=== PATIENT | female | born 1955 | race Caucasian/White ===

== ENCOUNTER 2017-04-23 05:50 | Day surgery (SDC) | payer OTHER ==
[~2017-04-23] VITALS: Ht 165.1 cm; Wt 115.7 kg
[~2017-04-23 05:50] MED LIST: ADVAIR 250-501 EACH INH; ALBUTEROL SULF8.5 GM; CELEBREX200 MG PO; COZAAR25 MG PO; CYMBALTA60 MG PO; FIBER GUMMIES1 EACH PO; FISH OIL 1,0001 EAC6 PO; GENTAMICIN SULFA5 ML OD; GLUCOPHAGE500 MG PO; IBUPROFEN800 MG PO; LIPITOR10 MG PO; LORATADINE10 MG PO; MOBIC15 MG PO; NAPROSYN500 MG PO; NASONEX17 GM NS; NORCO 5-325 TA1 EACH PO; NORTRIPTYLINE H10 MG PO; ONE DAILY FOR1 EACH PO; PRILOSEC20 MG PO; PROAIR HFA8.5 GM INH; SINGULAIR10 MG PO; TRAZODONE HCL150 MG PO; VIACTIV SOFT C1 EACH PO; VITAMIN B-50 C0.4 MG PO
--- NOTE | 2017-04-23 08:51 | NUR ---
04/23/17 0851 Phoebe Munoz 9716-PATIENT ARRIVED TO PACU ON 6L MASK O2 SAT 100% AWAKE DENIES PAIN OR NAUSEA. ABLE TO WIGGLE LEFT FINGERS DRESSING CDI NUMBNESS TO LEFT HAND ELEVATED ON PILLOW AND ICE APPLIED.
[2017-04-23] MEDS ORDERED: ULTRAM50 MG PO (09:17)
--- NOTE | 2017-04-24 07:05 | OR ---
[facility] [address] [place], [place] [address] Signed DATE OF OPERATION: 04/23/2017 SURGEON: Sergo Pak MD PREOPERATIVE DIAGNOSIS: Trigger finger, left ring. POSTOPERATIVE DIAGNOSIS: Trigger finger, left ring. PROCEDURE: A1 rachelle release, left ring finger. ANESTHESIA: Blanchard block. SPECIMENS AND COMPLICATIONS: There were no specimens or complications. TOURNIQUET TIME: About 24 minutes. WHAT WAS DONE: The patient was taken to the operating room. After anesthesia was induced, the patient's left upper extremity was positioned, prepped, and draped in the routine sterile fashion. A transverse incision was made near the MCP flexion crease. Skin was divided sharply. Subcutaneous tissue was bluntly spread. The A1 rachelle was identified. We released it with the tip of a 15 blade at which point, we had free excursion of the tendon with no more triggering. The wound was gently irrigated, closed in a standard fashion. Sterile dressing applied. The patient was awakened to the recovery room where she arrived in stable condition. Counts were correct and antibiotic protocols were followed. Sergo Pak MD WFB/MODL Electronically Signed By: SERGO PAK MD 04/24/17 0705 PATIENT NAME: JENNIFERPRO OPERATIVE REPORT DATE OF : 55 PHYSICIAN: SERGO PAK MD REPORT #: [id number] REPORT IS CONFIDENTIAL AND NOT TO BE RELEASED WITHOUT AUTHORIZATION [address] [place], [place] [address] Signed /[id number] Electronically Signed By: SERGO PAK MD 04/24/17 0705 PATIENT NAME: PRO RODRIGUEZ OPERATIVE REPORT DATE OF : 55 PHYSICIAN: SERGO PAK MD REPORT #: [id number] REPORT IS CONFIDENTIAL AND NOT TO BE RELEASED WITHOUT AUTHORIZATION
== END 2017-04-23 09:42 | disposition home or self-care (01) ==
LOC: OPS 05:50 → DS 06:45 → OPS 08:30
PROVIDERS: Orthopaedic Surgery
PROC: 0LN80ZZ Release Left Hand Tendon, Open Approach (ICD-10-PCS; principal; 2017-04-23 08:30)
DX: M65.342 Trigger finger, left ring finger (principal); J45.909 Unspecified asthma, uncomplicated; E11.9 Type 2 diabetes mellitus without complications; I10 Essential (primary) hypertension; Z88.0 Allergy status to penicillin; Z79.899 Other long term (current) drug therapy; Z98.890 Other specified postprocedural states
CPT/HCPCS: 01810; J2250; J2704; J3010; J7120

== ENCOUNTER 2019-01-11 12:46 | Day surgery (SDC) | payer BC ==
[~2019-01-11] VITALS: Ht 160 cm; Wt 111.1 kg
[~2019-01-11 12:46] MED LIST changes: +ULTRAM50 MG PO
--- NOTE | 2019-01-11 14:40 | NUR ---
01/11/19 1440 RAUL MIRANDA PATIENT ARRIVED FROM ENDO ROOM AND WAS ON 4L NC AT 1430. PATIENT WAS AWAKE AND CONVERSING AND ABLE TO FOLLOW INSTURCTIONS. PATIENT WAS ENCOURAGED TO PASS GAS. PATIENT HAS NO COMPLAINTS OF NAUSEA. PATIENT DOES STATE HE STOMACH FEELS TIGHT. PATIENT WAS TAKEN OFF OXYGEN AT 1435. PATIENT O2 SAT HAS BEEN 95-96% WHILE ON ROOM AIR. NO OTHER COMPLAINTS AT THIS TIME.
--- NOTE | 2019-01-12 10:24 | OR ---
[facility] [address] [place], [place] [address] Signed DATE OF OPERATION: 01/11/2019 SURGEON: Ori Ramos MD PREOPERATIVE DIAGNOSES: 1. History of diverticulosis, episodic diarrhea, diabetes mellitus. 2. Family history of Crohn disease (mother). POSTOPERATIVE DIAGNOSES: 1. Extensive diverticulosis of sigmoid and left colon. 2. Normal-appearing ileum. 3. Possible small bowel polyp in left colon (excised). PROCEDURES PERFORMED: 1. Total colonoscopy to cecum with biopsies of cecum, rectum, and ileum. 2. Cold morcellation polypectomy x1, left colon. ANESTHESIA: Intravenous sedation, fentanyl 100 mcg, Versed 5 mg. INDICATION: This obese 63-year-old white woman is a patient of Dr. German and has been referred for surveillance colonoscopy essentially. She underwent colonoscopy in 2008, at that time was noted to have diverticulosis. She does have diarrhea from time to time and its relationship to her cholecystectomy is uncertain. She does have diabetes and takes Glucophage, Singulair tablets, Cymbalta, Lipitor, and trazodone. She is admitted at this time to undergo colonoscopy for surveillance as well as for issues of diarrhea. Notably, her mother had Crohn disease. She understands the risks of bleeding, infection, and perforation related to colonoscopy and wished to proceed. FINDINGS: The prep was excellent. Complete colonoscopy was undertaken to the cecum. Short intubation of the ileum allowed for visualization and biopsies. There were numerous diverticula. There was one area likely a small polyp at the splenic flexure, which was excised. Mucosa of the colon otherwise was normal as was the ileum. DESCRIPTION OF PROCEDURE: The patient was brought to endoscopy suite and placed in lateral decubitus position. Given intravenous sedation to the point of slurred speech and nystagmus under full cardiopulmonary monitoring. Digital rectal examination was normal. Electronically Signed By: ORI RAMOS MD 01/12/19 [facility] PATIENT NAME: PRO RODRIGUEZ OPERATIVE REPORT DATE OF : 55 REPORT #: [id number] PHYSICIAN: ORI RAMOS MD PCP: KERRY MAIN MD REPORT IS CONFIDENTIAL AND NOT TO BE RELEASED WITHOUT AUTHORIZATION [facility] [address] [place], [place] [address] Signed An Olympus video colonoscope was passed in the rectum and manipulated into the sigmoid, where numerous diverticula were noted. The scope was advanced beyond this ultimately to the cecum. The ileocecal valve and appendiceal orifice were normal. Several passes of the scope into the ileum allowed for good visualization, but it could not persistently stayed there. On that basis, a biopsy was made by insinuating the forceps into the ileum. Several biopsies were taken. The scope was withdrawn and biopsies taken of the cecum to rule out occult colitis. Further withdrawal of scope showed an area of likely a small polyp of the proximal descending colon (splenic flexure), which was excised with cold morcellation technique. It is not certain that this represented a polyp, though narrow band imaging suggested it strongly. Further withdrawal showed numerous diverticula of the left colon and sigmoid. Retroflexed view showed internal hemorrhoidal changes, but no other findings. Biopsies were taken of the rectum. CONCLUDING DIAGNOSES: 1. No clear evidence of colitis or ileitis. 2. Diverticulosis. 3. Small polyp of left colon. PLAN: If she has recurrence of her diarrhea, consideration might be made for Questran. We will review her pathology reports. She will return to the ongoing care of Dr. German generally speaking, and if there are persistent symptoms, I will see her again myself. Ori Ramos MD /APRILL /[id number] cc: Hilary German MD Copies: HILARY GERMAN MD ~ Electronically Signed By: ORI RAMOS MD 01/12/19 1024 PATIENT NAME: PRO RODRIGUEZ OPERATIVE REPORT DATE OF : 55 REPORT #: [id number] PHYSICIAN: ORI RAMOS MD PCP: KERRY MAIN MD REPORT IS CONFIDENTIAL AND NOT TO BE RELEASED WITHOUT AUTHORIZATION
--- NOTE | 2019-01-12 16:56 | PATH ---
[facility] [address] [place], [place] [address] Signed SPECIMEN(S): A CECUM SPECIMEN(S): B TERMINAL ILEUM SPECIMEN(S): C PROXIMAL DESCENDING POLYP SPECIMEN SOURCE: A. CECUM B. TERMINAL ILEUM C. PROXIMAL DESCENDING POLYP CLINICAL HISTORY: Colonoscopy, chronic diarrhea, history of colon polyps, family history of Crohn's disease, dyslipidemia, diverticulosis. MICROSCOPIC DESCRIPTION: A. Sections reveal a biopsy of colonic mucosa. The epithelial surface is intact but has slightly decreased mucus secreting ability. The basement membrane is not thickened. The glands are simple and tubular and reach all of the way to the muscularis mucosae. The lamina propria is minimally edematous but otherwise fairly unremarkable. It contains small numbers of plasma cells, lymphocytes and infrequent eosinophils. No acute inflammatory cells, excess intraepithelial lymphocytes, crypt abscesses, areas of fibrosis, granulomas or pseudomembranes are seen. There is no evidence of malignancy or atypia. B, C. Histologic sections of all submitted blocks are examined by light microscopy. These findings, together with the gross examination, support the pathologic diagnosis. LJA:carolina FINAL PATHOLOGIC DIAGNOSIS: A. Mucosa, cecum biopsy: - No microscopic pathologic diagnosis. B. Mucosa, terminal ileum, biopsy: - Small intestinal mucosa with normal villiform architecture, no microscopic pathologic diagnosis. C. Mucosa, proximal descending colon, biopsy: - No microscopic pathologic diagnosis (Polyp, clinicalsee comment). COMMENT: CMultiple levels over three slides are examined. No adenomatous or hyperplastic change is seen. LJA:cml:C2NR PATIENT NAME: PRO RODRIGUEZ PATHOLOGY DATE OF : 55 REPORT #: [id number] PHYSICIAN: NESTOR BUSBY PCP: KERRY MAIN MD REPORT IS CONFIDENTIAL AND NOT TO BE RELEASED WITHOUT AUTHORIZATION [facility] [address] [place], [place] [address] Signed GROSS DESCRIPTION: Three specimens are received in three containers, labeled "CO." A. The specimen, labeled "CO, cecum," is received in formalin and consists of two herbert-white soft tissue fragments each measuring 0.2 cm in greatest dimension. The specimen is entirely submitted in cassette (A1). B. The specimen, labeled "CO, terminal ileum," is received in formalin and consists of two herbert-white soft tissue fragments each measuring 0.2 cm in greatest dimension. The specimen is entirely submitted in cassette (B1). C. The specimen, labeled "CO, proximal descending polyp," is received in formalin and consists of a 0.2 cm greatest dimension irregular herbert-white soft tissue fragment. The specimen is entirely submitted in cassette (C1). AR (under the direct supervision of a pathologist) The Gross Description was prepared using a voice recognition system. The report was reviewed for accuracy; however, sound-alike word errors, addition and/or deletions may occur. If there is any question about this report, please contact Client Services. PERFORMING LABORATORY: The technical component was performed by [facility] [address] (Movie Theater Manager: Lori Garcia MD; CLIA# [id number]). [facility] [address] [address] (Movie Theater Manager: Mateo Arias MD; CLIA# [id number]). Diagnostician: Mateo Arias MD Pathologist Electronically Signed 01/12/2019 Copies: ~ PATIENT NAME: PRO RODRIGUEZ PATHOLOGY DATE OF : 55 REPORT #: [id number] PHYSICIAN: NESTOR PATHOLOGY PCP: KERRY MAIN MD REPORT IS CONFIDENTIAL AND NOT TO BE RELEASED WITHOUT AUTHORIZATION
== END 2019-01-11 15:10 | disposition home or self-care (01) ==
LOC: DS 12:46 → OPS 12:46 → DS 14:00 → OPS 15:10
PROVIDERS: Surgery
PROC: 0DBB8ZX Excision of Ileum, Via Natural or Artificial Opening Endoscopic, Diagnostic (ICD-10-PCS; 2019-01-11)
PROC: 0DBP8ZX Excision of Rectum, Via Natural or Artificial Opening Endoscopic, Diagnostic (ICD-10-PCS; 2019-01-11)
PROC: 0DBG8ZZ Excision of Left Large Intestine, Via Natural or Artificial Opening Endoscopic (ICD-10-PCS; 2019-01-11)
PROC: 0DBH8ZX Excision of Cecum, Via Natural or Artificial Opening Endoscopic, Diagnostic (ICD-10-PCS; principal; 2019-01-11 14:00)
DX: R19.7 Diarrhea, unspecified (principal); K57.30 Diverticulosis of large intestine without perforation or abscess without bleeding; E11.9 Type 2 diabetes mellitus without complications; E66.01 Morbid (severe) obesity due to excess calories; J45.909 Unspecified asthma, uncomplicated; J68.3 Other acute and subacute respiratory conditions due to chemicals, gases, fumes and vapors; K21.9 Gastro-esophageal reflux disease without esophagitis; G47.30 Sleep apnea, unspecified; Z68.41 Body mass index [BMI] 40.0-44.9, adult; Z83.79 Family history of other diseases of the digestive system; Z88.0 Allergy status to penicillin
CPT/HCPCS: 99153; G0500; J2250; J3010; J7120

== ENCOUNTER 2020-09-10 07:10 | Day surgery (SDC) | payer MEDICARE, OTHER ==
[~2020-09-10] VITALS: Ht 160 cm; Wt 115.0 kg
[~2020-09-10 07:10] MED LIST changes: +LYRICA75 MG; +MEDROL4 M1 PO
[2020-09-10] MEDS ORDERED: HYDROCODON-ACE1 EA11 PO (10:56)
--- NOTE | 2020-09-10 11:03 | NUR ---
PT ALERT, ORIENTED AND SUPPORTED BY HER QUANG. PT LIVES IN RV WITH , QUESTIONS ASKED ANSWERED. PT REQUESTED PRAYER, WILL RETURN TO [facility] LATER TODAY. WILL FOLLOW NEEDED
--- NOTE | 2020-09-10 11:08 | NUR ---
09/10/20 1108 Sheets,[place] 1100 PT ARRIVED TO PACU ON 6L VIA MASK, RESP EVEN AND UNLABORED. PT ARM ELEVATED ON PILLOW PT DENIES PAIN. [facility] WNL. 1107 O2 REMOVED AND PT ENCOURAGED TO DEEP BREATHE. VSS.
--- NOTE | 2020-09-10 12:13 | NUR ---
SOUP ORDERED FOR LUNCH. PT CONTINUES TO DENY NAUSEA. REPORTS INCREASING PAIN.
--- NOTE | 2020-09-12 07:11 | OR ---
[facility] [address] [place], [place] [address] Signed DATE OF OPERATION: 09/10/2020 SURGEON: Tom Arias MD PREOPERATIVE DIAGNOSIS: Left cubital tunnel syndrome. POSTOPERATIVE DIAGNOSIS: Left cubital tunnel syndrome. PROCEDURE PERFORMED: Left ulnar nerve transposition. BANKING CONSULTANT: Shannon Arriaga PA-C. Shannon was present and critical for all portions of procedure. ANESTHESIA: General. TOURNIQUET TIME: 45 minutes. BRIEF HISTORY: Marley is a 65-year-old female with progressive worsening of numbness and tingling in her small and ring fingers. Nerve conduction studies were consistent with cubital tunnel. Once nonoperative treatment failed to control her symptoms, she elected to proceed. Risks and benefits of operative treatment were discussed with her and she elected to proceed. DESCRIPTION OF PROCEDURE: Once consent was obtained, she was taken to the operating room. After adequate anesthesia, she was placed on operating room table. All downside pressure points were well padded. The arm was prepped and draped in a standard sterile fashion and a sterile tourniquet was applied to the arm and the arm was exsanguinated using Esmarch bandage. Tourniquet was inflated to 225 mmHg. Her body habitus was quite big, so it is a little difficult to find the medial epicondyle, but we did center a 3-inch incision over this, carried through the skin and subcutaneous tissue. The fat was dissected and taken down to the medial epicondyle. The fascia overlying the cubital tunnel was then opened gently and under loupe magnification, the nerve was identified and dissected free from Electronically Signed By: TOM ARIAS MD 09/12/20 0711 PATIENT NAME: MARLEY RODRIGUEZ OPERATIVE REPORT DATE OF : 55 REPORT #: [id number] PHYSICIAN: TOM ARIAS MD PCP: KERRY MAIN MD REPORT IS CONFIDENTIAL AND NOT TO BE RELEASED WITHOUT AUTHORIZATION [facility] [address] [place], [place] [address] Signed surrounding soft tissue. The vascular plexus posteriorly were avoided. The nerve was then gently teased out of the cubital tunnel. It was unroofed distally and proximally. The intermuscular ridge was debrided and released to allow no pressure with transposition of the nerve anteriorly. The nerve distally was dissected free of surrounding soft tissue and taken down to the anconeus branch and was transposed anteriorly with no tension. The bleeders were cauterized as we went with bipolar cautery. A fascial sling was then fashioned anteriorly and sutured over the nerve with care taken to protect the nerve. The sling was sutured with 2-0 Vicryl and at the end of the procedure, we were able to freely move the nerve back and forth in the sling. The wound was then copiously irrigated with antibiotic solution. The fatty tissue was closed using 2-0 Vicryl, subcutaneous tissue with 2-0 Monocryl and the skin with 3-0 Monocryl. Steri-Strips were applied. The wound was dressed with Allevyn dressing, sterile cast padding and a posterior splint. She tolerated the procedure well. All sponge, needle, and instrument counts were correct. Tom Arias MD BA/MODL /[id number] Copies: ~ Electronically Signed By: TOM ARIAS MD 09/12/20 0711 PATIENT NAME: MARLEY RODRIGUEZ OPERATIVE REPORT DATE OF : 55 REPORT #: [id number] PHYSICIAN: TOM ARIAS MD PCP: KERRY MAIN MD REPORT IS CONFIDENTIAL AND NOT TO BE RELEASED WITHOUT AUTHORIZATION
== END 2020-09-10 13:05 | disposition home or self-care (01) ==
LOC: DS 07:10
PROVIDERS: ATTEND Specialist
PROC: 01S40ZZ Reposition Ulnar Nerve, Open Approach (ICD-10-PCS; principal; 2020-09-10 09:30)
DX: G56.22 Lesion of ulnar nerve, left upper limb (principal); G89.18 Other acute postprocedural pain; G47.30 Sleep apnea, unspecified; M65.322 Trigger finger, left index finger; J45.909 Unspecified asthma, uncomplicated; I10 Essential (primary) hypertension; E78.00 Pure hypercholesterolemia, unspecified; E11.9 Type 2 diabetes mellitus without complications; K21.9 Gastro-esophageal reflux disease without esophagitis; Z79.84 Long term (current) use of oral hypoglycemic drugs; Z88.0 Allergy status to penicillin; Z87.891 Personal history of nicotine dependence; Z86.16 Personal history of COVID-19
CPT/HCPCS: 01810; 64415; 76942; J0690; J1100; J2001; J2250; J2704; J2795; J7121

== ENCOUNTER 2021-01-02 05:45 | Day surgery (SDC) | payer MEDICARE, OTHER ==
--- NOTE | ~2021-01-02 | OR ---
[facility] [address] [facility] [place], [place] [address] Draft DATE OF OPERATION: 01/02/2021 SURGEON: Josee German MD PREOPERATIVE DIAGNOSIS: Abnormal Pap smear, inadequate colposcopy. POSTOPERATIVE DIAGNOSIS: Abnormal Pap smear, inadequate colposcopy, pending pathology. PROCEDURE: Loop electrosurgical excision procedure. ANESTHESIA: MAC. ESTIMATED BLOOD LOSS: Minimal. DRAINS: None. INDICATIONS AND FINDINGS: The patient is a 65-year-old female who has had recurrent abnormal Pap smears. Last Pap revealed low-grade lesion. Colposcopy was inadequate. She has had a LEEP as well as a cone in the distant past. At the time of surgery, exam under anesthesia was normal. There were no abnormal staining areas on the exocervix. The cervix was stenotic. DESCRIPTION OF PROCEDURE: The patient was prepped and draped in the dorsal lithotomy position. An insulated speculum was placed and the cervix and vagina stained with Lugol's. Following this, the narrow loop was used to remove the exocervix as the cervix itself was quite small. This was accomplished, and the neural loop was used again to go deeper into the endocervical canal with a second specimen obtained. Following this, the small dilator was used to dilate the endocervical canal. This was followed by ball cautery to the base of the LEEP. Monsel's solution was used at the end for further hemostasis. The speculum and instruments removed. She tolerated the procedure well and was taken to the recovery room in good condition. PATIENT NAME: PRO ZEPEDA OPERATIVE REPORT DATE OF : 55 REPORT #: [id number] PHYSICIAN: JOSEE GERMAN MD PCP: LASHANDA SALAZAR MD REPORT IS CONFIDENTIAL AND NOT TO BE RELEASED WITHOUT AUTHORIZATION [address] [place], [place] [address] Draft MD BRADY Saravia/NOBLE /[id number] Copies: ~ PATIENT NAME: PRO ZEPEDA OPERATIVE REPORT DATE OF : 55 REPORT #: [id number] PHYSICIAN: JOSEE GERMAN MD PCP: LASHANDA SALAZAR MD REPORT IS CONFIDENTIAL AND NOT TO BE RELEASED WITHOUT AUTHORIZATION
[~2021-01-02 05:45] MED LIST changes: +HYDROCODON-ACE1 EA11 PO
[2021-01-02] MEDS ORDERED: CALCIUM500 MG PO (06:10)
[2021-01-02] MEDS ORDERED: VITAMIN D310 MC1 PO (06:10)
--- NOTE | 2021-01-02 07:42 | NUR ---
01/02/21 0742 Phoebe Munoz 8548-PATIENT ARRIVED TO PACU ON RA RR EVEN. PATIENT DROWSY EYES CLOSED AROUSES TO VERBAL STIMULI DENIES PAIN OR NAUSEA. ROBEL PAD IN PLACE NO DRAINAGE. PATIENT HAS CPAP WITH HER HAS SLEEP APNEA. PER [facility]ING MANAGER DO NOT NEED TO RECHECK BLOOD SUGAR. SR. IVF INFUSING.
--- NOTE | 2021-01-03 17:50 | PATH ---
[facility] [address] [place], [place] [address] Signed SPECIMEN(S): A EXOCERVIX SPECIMEN(S): B ENDOCERVIX SPECIMEN SOURCE: A. EXOCERVIX B. ENDOCERVIX CLINICAL HISTORY: Cone biopsy. Abnormal Pap, inadequate colposcopy. FINAL PATHOLOGIC DIAGNOSIS: A. Exocervix, cone biopsy: - Squamous mucosa with no histopathologic abnormality. - See Comment. B. Endocervix, cone biopsy: - Cauterized, mostly denuded cervical squamous mucosa and focal endocervical glands. - See Comment. COMMENT: Multiple additional deeper levels of both the exocervix (specimen A) and endocervix (specimen B) were examined. The overwhelming vast majority of the mucosa of the endocervical tissue fragment (specimen B) is denuded. The squamous mucosa and the minimal endocervical glands that are present are negative for dysplasia. Of note, some fragments of mucosa have significant crush artifact, which prevents histologic interpretation. NAL:bg:C2NR MICROSCOPIC EXAMINATION: Histologic sections of all submitted blocks are examined by light microscopy. These findings, together with the gross examination, support the pathologic diagnosis. GROSS DESCRIPTION: Two specimens are received in two containers, labeled "CB." A. The specimen, labeled "CB, exocervix," is received in formalin and consists of pink-herbert soft tissue fragment that measures 0.8 x 0.7 x 0.3 cm. Specimen is inked and bisected. Specimen is entirely submitted in cassette (A1). B. The specimen, labeled "CB, endocervix," is received in formalin and PATIENT NAME: PRO ZEPEDA PATHOLOGY DATE OF : 55 REPORT #: [id number] PHYSICIAN: NESTOR BUSBY PCP: LASHANDA SALAZAR MD REPORT IS CONFIDENTIAL AND NOT TO BE RELEASED WITHOUT AUTHORIZATION [facility] [address] [place] [address] Signed consists of one irregular shaped piece of pink-herbert soft tissue that measures 1.2 x 0.7 x 0.4 cm. The ectocervix is pink-herbert, smooth. Specimen is inked and serially sectioned. Specimen is entirely submitted in cassette (B1). JS (under the direct supervision of a pathologist) The Gross Description was prepared using a voice recognition system. The report was reviewed for accuracy; however, sound-alike word errors, addition and/or deletions may occur. If there is any question about this report, please contact Client Services. PERFORMING LABORATORY: The technical component was performed by [employer] [address] (Natural Resources Instructor: Lori Garcia MD; CLIA# [id number]). [facility] interpretation [facility] by [facility], [address] [address] (CLIA# [id number]). Diagnostician: Gali Miranda MD Pathologist Electronically Signed 01/03/2021 Copies: ~ PATIENT NAME: PRO ZEPEDA PATHOLOGY DATE OF : 55 REPORT #: [id number] PHYSICIAN: NESTOR BUSBY PCP: LASHANDA SALAZAR MD REPORT IS CONFIDENTIAL AND NOT TO BE RELEASED WITHOUT AUTHORIZATION
== END 2021-01-02 08:25 | disposition home or self-care (01) ==
LOC: DS 05:45
PROVIDERS: ATTEND Obstetrics & Gynecology
PROC: 0UBC7ZX Excision of Cervix, Via Natural or Artificial Opening, Diagnostic (ICD-10-PCS; principal; 2021-01-02 07:30)
DX: N88.8 Other specified noninflammatory disorders of cervix uteri (principal); E66.9 Obesity, unspecified; J45.909 Unspecified asthma, uncomplicated; E11.9 Type 2 diabetes mellitus without complications; M19.90 Unspecified osteoarthritis, unspecified site; K21.9 Gastro-esophageal reflux disease without esophagitis; I10 Essential (primary) hypertension; Z88.0 Allergy status to penicillin; Z79.84 Long term (current) use of oral hypoglycemic drugs; Z68.41 Body mass index [BMI] 40.0-44.9, adult
CPT/HCPCS: 00940; 90694; J1100; J1885; J2001; J2250; J2405; J2704; J2765; J7121

== ENCOUNTER 2021-08-21 07:45 | Day surgery (SDC) | payer MEDICARE, OTHER ==
[~2021-08-21] VITALS: Ht 160 cm; Wt 118.6 kg
--- NOTE | ~2021-08-21 | OR ---
[facility] [address] [place], [place] [address] Draft DATE OF OPERATION: 08/21/2021 SURGEON: Hilary German MD SATELLITE SPECIALIST: Adela Walsh D.O. PREOPERATIVE DIAGNOSIS: Recurrent cervical dysplasia. POSTOPERATIVE DIAGNOSIS: Recurrent cervical dysplasia, pending pathology. PROCEDURES: 1. Total laparoscopic hysterectomy. 2. Bilateral salpingectomy. 3. Cystoscopy. ANESTHESIA: General ET. ESTIMATED BLOOD LOSS: 25 mL. DRAINS: Otero catheter. INDICATIONS AND FINDINGS: The patient is a 66-year-old female, who has had recurrent cervical dysplasia. She has undergone two prior leads as well as a cone in the past. Her cervix was very scarred. At the time of the surgery, the cervix was scarred, small stenotic. Her uterus itself was quite small. The tubes and ovaries were normal. DESCRIPTION OF PROCEDURE: The patient was prepped and draped in the dorsal lithotomy position. Initially, the cervix was attempted to be visualized with a weighted speculum, but because of the previous scarring, the cervix was very difficult to identify. Weighted speculum was removed. The open-sided speculum was placed. Anterior lip of the cervix was then found and grasped with a single-tooth tenaculum. The OS, however, could not be breached. Lacrimal probes were tried as well as the OS Finders and the cervix could not be PATIENT NAME: PRO ZEPEDA OPERATIVE REPORT DATE OF : 55 REPORT #: [id number] PHYSICIAN: HILARY GERMAN MD PCP: LATASHA KENYON MD REPORT IS CONFIDENTIAL AND NOT TO BE RELEASED WITHOUT AUTHORIZATION [facility] [address] [place], [place] [address] Draft breached. Because of this, the speculum was removed and the tenaculum alone was left in place. Attention was directed to the above. The infraumbilical area was injected with 0.5% Marcaine plain. An incision was made with a knife. Each layer was then serially elevated and incised until the fascia was opened and identified, the stay sutures of 0-Vicryl were placed. The peritoneum was opened bluntly. The Elaine cannula was then placed and placed the scope, confirmed proper positioning. CO2 was then introduced into the abdomen. The secondary ports were placed laterally and slightly below the level of the umbilicus. Each of these areas was transilluminated, injected with the Marcaine, incision made with a knife and the trocars placed under direct vision. The left-sided port was a 5 mm port, the right was the Veress needle with the expanding port. Following this, the uterus was visualized and the decision made to proceed with our planned procedure. The patient's right utero-ovarian ligament and round ligament were serially coagulated and divided, this was taken down a little bit more, but the anterior leaf of the peritoneum was not incised at this point. The tube was grasped and was serially coagulated and divided from the fimbriated end and the specimen retrieved through the 8 mm port. The same procedure was carried out on the patient's left side. Again, the utero-ovarian and round ligament areas were coagulated and divided. The tube was serially divided along the mesosalpinx and also excised. Following this, attention was directed anteriorly and the bladder flap was created using the LigaSure [place] device. The peritoneum was taken down posteriorly as well. The uterine vessels were taken at the level of the internal os on the patient's left side, these were serially coagulated and divided. This was done on the right side as well. Attention was redirected anterior and the bladder flap was completed and the bladder pushed down and the tenaculum on the anterior lip of the cervix could then be palpated. The peritoneum was taken down posteriorly to the upper uterosacral ligaments. Following this, it was felt that the specimen could be removed. The Sonicision device was used to begin anteriorly over the area of the tenaculum and this was used to score through a lot of the vaginal mucosa, though the vagina was not entered at this point. Attention was redirected posteriorly and the vagina was able to be entered and the specimen from the cuff. An attempt was made to remove the specimen vaginally, but it was very difficult to grasp given the size of the vagina as well as the patient's size and this was abandoned. The vagina was packed with a wet lap in a glove allowing the pneumoperitoneum to reaccumulate. The uterus was then retrieved via the EndoCatch through the abdominal incision and brought up to the umbilicus and removed intact through the umbilical site. Following this, the pelvis was re-evaluated, there appeared to be a small area of cervix remaining on the anterior portion and this was excised using the LigaSure device. The remaining cuff appeared free of any remaining cervix. The Endo Stitch was then used to close the vaginal cuff, incorporating the right uterosacral ligament and the vaginal mucosa both posteriorly and anteriorly and this was run to the patient's left uterosacral ligament and back to the center. Following this, the abdomen was copiously irrigated and inspected. There was a bleeding point near the patient's left sidewall, this was controlled with the LigaSure device. There was a PATIENT NAME: DUANEPRO OPERATIVE REPORT DATE OF : 55 REPORT #: [id number] PHYSICIAN: HILARY GERMAN MD PCP: LATASHA KENYON MD REPORT IS CONFIDENTIAL AND NOT TO BE RELEASED WITHOUT AUTHORIZATION [facility] [address] [place], [place] [address] Draft significant amount of raw area and Tisseel was used to spray over this area to ensure hemostasis. All sponge and needle counts were correct at this point. The inserts removed from the abdomen after allowing as much CO2 as possible to escape. The fascial incision was reidentified and closed with a running suture of 0 Vicryl. The stay sutures were tied across as well. The skin incisions were closed with subcuticular sutures of 3-0 Vicryl Rapide. The vaginal pack was removed and the Otero catheter was removed. Cystoscopy was done. She had received IV fluorescein. There was no evidence of any damage to the bladder. Both ureteral orifices were seen to squirt clear urine. No fluorescein was seen at this time, however. Following this, the procedure was complete. The patient was taken to the recovery room in good condition. Hilary German MD PJW/MODL /[id number] cc: Adela Walsh DO Copies: ADELA WALSH DO ~ PATIENT NAME: PRO ZEPEDA OPERATIVE REPORT DATE OF : 55 REPORT #: [id number] PHYSICIAN: HILARY GERMAN MD PCP: LATASHA KENYON MD REPORT IS CONFIDENTIAL AND NOT TO BE RELEASED WITHOUT AUTHORIZATION
[~2021-08-21 07:45] MED LIST changes: +CALCIUM500 MG PO; +IRON18 MG PO; +MULTI VITAMIN1 EACH PO; +VITAMIN D310 MC1 PO
--- NOTE | 2021-08-21 14:06 | NUR ---
08/21/21 1406 Phoebe Munoz 1352-PATIENT ARRIVED TO PACU ON 10L MASK NONAROUSABLE ORAL AIRWAY IN PLACE RR EVEN O2 SAT 90%. IVF INFUSING. SR. PATEL CATHETER DRAINING YELLOW URINE. 3 LAP SITES TO ABDOMEN CDI. ROBEL PAD IN PLACE 1353-PATIENT AROUSING TO VERBAL STIMULI EYES OPENING NOT FOLLOWING COMMANDS O2 SAT INCREASES TO 93% PATIENT DOES USES CPAP FOR SLEEP APNEA. 1404-PATIENT AROUSING TO VERBAL STIMULI OPENING MOUTH ORAL AIRWAY REMOVED. PLACED ON 6L MASK RR EVEN 93% PATIENT ENCOURAGED TO TAKE DEEP BREATHES. IV TYLENOL INFUSING
--- NOTE | 2021-08-21 15:01 | NUR ---
PATIENT BACK IN DAY SURGERY ROOM FROM PACU. DENIES PAIN. DENIES NAUSEA. DROWSY. VS CHECKED. 3 LAP SITES ON ABDOMEN WITH BANDAIDS WITH SCANT AMOUNT OF RED DRAINAGE. PERIPAD IN PLACE WITH SCANT AMOUNT OF RED DRAINAGE. IV SITE WNL. SCDs ON. PATIENT TAKING SIPS OF ICE WATER. CALLED RT TO PLACE PATIENT'S OWN CPAP ON HER DUE TO SLEEPINESS. AT BEDSIDE. CALL LIGHT WITHIN REACH.
[2021-08-21] MEDS ORDERED: IBUPROFEN800 MG PO (15:16)
[2021-08-21] MEDS ORDERED: PERCOCET 5-3251 EACH PO (15:17)
[2021-08-21] MEDS ORDERED: ONDANSETRON ODT8 MG PO (15:18)
--- NOTE | 2021-08-21 15:55 | NUR ---
PATIENT DROWSY, BUT EASILY AWAKENS TO VOICE. VS CHECKED. PATEL CATHETER DC'D. PATIENT TOLERATED PATEL DC WELL. PATIENT TOLERATING WATER. GIVEN VIRGILIO CRACKERS TO EAT. AT BEDSIDE. CALL LIGHT WITHIN REACH. PATIENT USING CPAP WHILE SLEEPING.
--- NOTE | 2021-08-21 16:27 | NUR ---
PATIENT TOLERATED VIRGILIO CRACKERS. DENIES PAIN. DISCHARGE INSTRUCTIONS GIVEN TO PATIENT AND . PATIENT RESTING. NO URGE TO VOID YET. AT BEDSIDE. CALL LIGHT WITHIN REACH.
--- NOTE | 2021-08-21 17:04 | NUR ---
1700: PT AWAKE AND ALERT HOLDING APPROPRIATE CONVERSATION WITH . VSS, RESP EVEN AND UNLABORED. LAP SITES X3 WITH SMALL AMOUNT OF RED DRAINAGE. PT DENIES URGE TO VOID AT THIS TIME. DISCUSSED POC AND PT AGREEABLE. COMFORTABLE WITHOUT PAIN OR NAUSEA. CALL LIGHT WITHIN REACH
--- NOTE | 2021-08-21 17:43 | NUR ---
0460 DR GREGG IN TO TALK WITH PT AND . PT AMB WELL. TAKING PO WELL. READY TO GO HOME.
--- NOTE | 2021-08-26 15:07 | PATH ---
[facility] [address] [place], [place] [address] Signed SPECIMEN(S): A UTERUS, CERVIX, BILAT FALLOPIAN TUBES SPECIMEN SOURCE: A. UTERUS, CERVIX, BILAT FALLOPIAN TUBES CLINICAL HISTORY: Recurrent cervical dysplasia. FINAL PATHOLOGIC DIAGNOSIS: Uterus, cervix and bilateral fallopian tubes, hysterectomy and bilateral salpingectomy: - Cervix: Cauterized with focal hemosiderin deposition, atrophic/metaplastic changes. - Endometrium: Inactive endometrium. - Myometrium: No histopathologic abnormality. - Fallopian tubes: Paratubal cysts. - No evidence of malignancy. COMMENT: The clinical history of recurrent cervix dysplasia is noted. The entire cervix was submitted but no definite ectocervix is identified on gross or microscopic examinations. There is no dysplasia identified. NAL:[facility]:C2NR MICROSCOPIC EXAMINATION: Histologic sections of all submitted blocks are examined by light microscopy. These findings, together with the gross examination, support the pathologic diagnosis. GROSS DESCRIPTION: The specimen, labeled "Bedortha, uterus, cervix, bilateral fallopian tubes as per the requisition," is received in formalin and consists of an intact uterus (21 grams, 5.1 cm cervix to fundus by 2.7 cm cornu to cornu by 1.7 cm anterior to posterior) with detached fimbriated fallopian tubes (each 4.2 cm in length by 0.4 cm diameter). The uterine serosa is herbert-kamara with ragged adhesions on the anterior half. The ectocervix is roughened and largely cauterized with a patent 0.2 cm pinpoint os. No ectocervical mucosa is identified. The ectocervix is inked blue. The endocervix has an unremarkable herringbone pattern. The endometrium is slightly hemorrhagic with an average thickness of PATIENT NAME: PRO ZEPEDA PATHOLOGY DATE OF : 55 REPORT #: [id number] PHYSICIAN: NESTOR BUSBY PCP: LATASHA KENYON MD REPORT IS CONFIDENTIAL AND NOT TO BE RELEASED WITHOUT AUTHORIZATION [facility] [address] [place], [place] [address] Signed 0.1 cm. The myometrium is trabeculated with an average thickness of 0.7 cm. The fallopian tubes are herbert-purple with multiple clusters of fluid-filled cysts, measuring up to 0.5 cm in greatest dimension. The cut surfaces show an unremarkable pinpoint lumen. [employer] sections (entire cervix) are submitted as follows: Cassette summary: A1 fimbria, longitudinally bisected and one cross section with cyst A2 opposite fimbria, longitudinally bisected and one cross section with cyst A3-A5 anterior cervix (9 o'clock to 3 o'clock sequentially submitted) A6 anterior endomyometrium A7-A10 posterior cervix (3 o'clock to 9 o'clock sequentially submitted) A11 posterior endomyometrium KD (under the direct supervision of a pathologist) The Gross Description was prepared using a voice recognition system. The report was reviewed for accuracy; however, sound-alike word errors, addition and/or deletions may occur. If there is any question about this report, please contact Client Services. PERFORMING LABORATORY: The technical component was performed by [facility], [address] [place] [id number] (CLIA# [id number]). [facility] [address] [place] [address] (IA# [id number]). Diagnostician: Gali Miranda MD Pathologist Electronically Signed 08/26/2021 Copies: ~ PATIENT NAME: PRO ZEPEDA PATHOLOGY DATE OF : 55 REPORT #: [id number] PHYSICIAN: NESTOR PATHOLOGY PCP: LATASHA KENYON MD REPORT IS CONFIDENTIAL AND NOT TO BE RELEASED WITHOUT AUTHORIZATION
== END 2021-08-21 17:45 | disposition home or self-care (01) ==
LOC: DS 07:45
PROVIDERS: ATTEND Obstetrics & Gynecology
PROC: 0UT74ZZ Resection of Bilateral Fallopian Tubes, Percutaneous Endoscopic Approach (ICD-10-PCS; 2021-08-21)
PROC: 0UT94ZZ Resection of Uterus, Percutaneous Endoscopic Approach (ICD-10-PCS; principal; 2021-08-21 10:30)
DX: N87.9 Dysplasia of cervix uteri, unspecified (principal); N83.8 Other noninflammatory disorders of ovary, fallopian tube and broad ligament; N88.2 Stricture and stenosis of cervix uteri; Z88.0 Allergy status to penicillin; J45.909 Unspecified asthma, uncomplicated; G43.909 Migraine, unspecified, not intractable, without status migrainosus; F33.9 Major depressive disorder, recurrent, unspecified; E78.5 Hyperlipidemia, unspecified; I10 Essential (primary) hypertension; E66.01 Morbid (severe) obesity due to excess calories; Z68.41 Body mass index [BMI] 40.0-44.9, adult
CPT/HCPCS: J0131; J0330; J0694; J1644; J1885; J2370; J2405; J2704; J2765; J3010; J3475; J7121